=== PATIENT | male | born 1945 | race Caucasian/White ===

== ENCOUNTER 2017-05-10 19:30 | Emergency (ER) | payer BC ==
[2017-05-10 20:25] VITALS: BP 147/91
--- NOTE | 2017-05-10 21:36 | EDM.PDOC ---
ED HPI GENERAL MEDICAL PROBLEM - General Chief Complaint: Laceration Stated Complaint: HEAD LACERATION Time Seen by Provider: 05/10/17 21:04 Source of Information: Reports: Patient History Limitations: Reports: No Limitations - History of Present Illness INITIAL COMMENTS - FREE TEXT/NARRATIVE: This patient stood up under the pullout section of his Her and hit his scalp right on the sharp edge suffering a scalp laceration. It happened just prior to arrival. There was no loss of consciousness. He denies any neck pain. Family says he is acting normally. 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 ED EXAM, SKIN/RASH Exam: See Below Exam Limited By: No Limitations General Appearance: Alert, WD/WN Eye Exam: Bilateral Eye: Normal Inspection Head: Other (There is a laceration approximately 5 cm long its to the mid scalp right in the midline sort of a smile-shaped or semicircular laceration. It's a flap.) Neck: Full Range of Motion Course - Vital Signs Last Recorded V/S: Last Vital Signs Temp 36.3 C 05/10/17 20:24 Pulse 67 05/10/17 20:24 Resp 16 05/10/17 20:24 BP 147/91 H 05/10/17 20:24 Pulse Ox 97 05/10/17 20:24 - Re-Assessments/Exams Free Text/Narrative Re-Assessment/Exam: 05/10/17 21:33 Procedure: Laceration repair. The scalp was then gently cleansed with saline and a sponge the wound was then irrigated with normal saline to remove any clots. It's a clean wound. Wound was then the edges were then reapproximated with 4 kinjal taking special care to avoid a stairstep wound line. A good cosmetic result was obtained. Back back to bacitracin ointment and a dressing were applied Departure - Departure Time of Disposition: 21:34 Disposition: Home, Self-Care 01 Condition: Fair Clinical Impression: Scalp laceration - Discharge Information Forms: ED Department Discharge Additional Instructions: Okay all taken out actually get gently clean the wound with plain soap and water daily. You may apply little bit of antibiotic ointment and cover with a dressing however after a few days she may leave the dressing off. See your doctor in about one week for staple removal
== END 2017-05-10 22:09 | disposition home or self-care (01) ==
LOC: JP.ED 19:30
DX: S01.01XA Laceration without foreign body of scalp, initial encounter (principal); E78.00 Pure hypercholesterolemia, unspecified; Z79.899 Other long term (current) drug therapy; Z98.890 Other specified postprocedural states; W22.8XXA Striking against or struck by other objects, initial encounter
CPT/HCPCS: 12002; 99283-25